=== PATIENT | male | born 1990 | race Caucasian/White ===

== ENCOUNTER 2021-01-07 09:01 | Emergency (ER) | payer OTHER ==
--- OUTSIDE RECORDS SUMMARY | 2021-01-07 09:04 | XMS REPORT | Continuity of Care Document ---
:1990 Author Organization [facility] t Address [address] [place] [address] [address] [place] [address] Care Team Providers Name Role Phone Lab, Fam Pob I Attending Clinician Unavailable Doctor Unassigned, Name Attending Clinician Unavailable Problems This patient has no known problems. Allergies, Adverse Reactions, Alerts This patient has no known allergies or adverse reactions. Medications This patient has no known medications. Procedures This patient has no known procedures. Encounters Start End Encounter Admission Attending Care Care Encounter Source Date/Time Date/Time Type Type Clinicians Facility Department ID 2020-12-25 2020-12-25 Laboratory Lab, [facility] [id number] 18:40:50 19:00:50 Only Fam Pob I Health [id number] [place] [id number] Professio [phone] nal [address] 2020-12-25 2020-12-25 Orders Doctor ILDA [id number] 00:00:00 00:00:00 Only Unassigned, OZZY [id number] [place] [facility] [id number] Results This patient has no known results.
[2021-01-07 09:41] LABS: Absolute Lymphocytes (CBC) 1.3 K/uL (0.7-4.9); Basophils % 0.6 % (0-1.3); Hematocrit 43.5 % (39.6-49.0); Lymphocytes % 13.7 % (15.3-44.8); MPV 7.8 fL (7.6-11.3); RBC Red Blood Cell Count 5.16 M/uL (4.33-5.43)
[2021-01-07 09:51] LABS: Protime INR 1.01
[2021-01-07] MEDS ORDERED: LORazepam 2 MG/ML VIAL ONE (09:56)
[2021-01-07 10:09] LABS: ALT/SGPT 42 U/L (12-78); AST/SGOT 11 U/L (15-37); Albumin 4.8 g/dL (3.4-5.0); Alkaline Phosphatase 81 U/L (45-117); BUN Blood Urea Nitrogen 15 mg/dL (7-18); Bicarbonate 23 mmol/L (21-32); Bilirubin Direct 0.2 mg/dL (0-0.2); Bilirubin Total 1.1 mg/dL (0.2-1.0); Glucose Level 114 mg/dL (74-106); Magnesium 2.3 mg/dL (1.8-2.4); NT PRO-BNP 26 pg/mL (<125); Potassium 3.5 mmol/L (3.5-5.1); Protein, Total 8.3 g/dL (6.4-8.2); Sodium Level 140 mmol/L (136-145); Troponin (Emerg Dept Use Only) < 0.02 ng/mL (0.0-0.045)
--- NOTE | 2021-01-07 10:15 | ER ---
Nurse's Notes [facility] Name: Kevin Laughlin Age: 30 yrs Sex: Male : 1990 Arrival Date: 01/07/2021 Time: 09:05 Bed DIS3 Private MD: Diagnosis: Anxiety disorder, unspecified Presentation: 01/07 09:15 Chief complaint: Patient states: "I started these meds last night (Sertraline \\T\\ ss Gabapentin), but I was also diagnosed with COVID on the . I woke up in the middle of the night sweaty, nauseated and in a panic.". Coronavirus screen: Client presents with at least one sign or symptom that may indicate coronavirus-19. Ebola Screen: Patient denies exposure to infectious person. Patient denies travel to an Ebola-affected area in the 21 days before illness onset. Initial Sepsis Screen: Does the patient meet any 2 criteria? No. Patient's initial sepsis screen is negative. Does the patient have a suspected source of infection? No. Patient's initial sepsis screen is negative. Risk Assessment: Do you want to hurt yourself or someone else? Patient reports no desire to harm self or others. Onset of symptoms was January 06, 2021. 09:15 Method Of Arrival: Ambulatory ss 09:15 Acuity: JON 3 ss Historical: - Allergies: 09:18 No Known Allergies; ss - PMHx: 09:18 Anxiety; ss - PSHx: 09:18 None; ss - Immunization history:: Client reports having NOT received the Covid vaccine. - Social history:: Smoking status: Patient reports the use of cigarette tobacco products, denies chronic smoking, but will smoke occasionally. Screenin:20 Abuse screen: Denies threats or abuse. Denies injuries from another. Nutritional ss screening: No deficits noted. Tuberculosis screening: Never had TB. Fall Risk None identified. Assessment: 09:20 General: Behavior is anxious, Denies fever, feeling ill, fatigue, chills. Neuro: Level ss of Consciousness is awake, alert, obeys commands, Oriented to person, place, time, situation, Gait is steady, Speech is normal, Facial symmetry appears normal, Pupils are PERRLA, Denies numbness headache. Cardiovascular: Rhythm is regular. Respiratory: Airway is patent Respiratory effort is even, unlabored, Respiratory pattern is regular, symmetrical, Breath sounds are clear bilaterally. GI: No signs and/or symptoms were reported involving the gastrointestinal system. Patient currently denies abdominal pain, diarrhea, nausea, vomiting. EENT: Oral mucosa is moist. Derm: Skin is intact, is healthy with good turgor, Skin is dry, Skin is pink, warm \\T\\ dry. normal. Vital Signs: 09:15 Pulse 74; Resp 16; Pulse Ox 100% on R/A; Weight 86.18 kg; Height 5 ft. 7 in. (170.18 ss cm); 09:18 BP 140 / 99; Temp 98.1(TE); ss 09:15 Body Mass Index 29.76 (86.18 kg, 170.18 cm) ss ED Course: 09:05 Patient arrived in ED. mr 09:16 Iram Hahn FNP-C is PHCP. kb 09:16 Boby Lawson MD is Attending Physician. kb 09:17 Triage completed. ss 09:18 Arm band placed on right wrist. ss 09:20 Patient has correct armband on for positive identification. Bed in low position. Call ss light in reach. 09:24 Keyla Dozier, TAMARA is Primary Nurse. ss 09:34 Inserted saline lock: 20 gauge in right antecubital area, using aseptic technique. mt Blood collected. 09:48 XRAY Chest (1 view) In Process Unspecified. EDMS 10:23 No provider procedures requiring assistance completed. IV discontinued, intact, ss bleeding controlled, No redness/swelling at site. Pressure dressing applied. Administered Medications: 09:41 Drug: Ativan (LORazepam) 0.5 mg Route: IVP; Site: right antecubital; iw 10:24 Follow up: Response: No adverse reaction; Anxiety decreased ss Outcome: 10:15 Discharge ordered by . kb 10:23 Discharged to home ambulatory. ss 10:23 Condition: good 10:23 Discharge instructions given to patient, Instructed on discharge instructions, follow up and referral plans. Demonstrated understanding of instructions, follow-up care. 10:24 Patient left the ED. ss Signatures: Dispatcher [employer] EDMS Iram Hahn FNP-C FNP-Caitlin VazquezaAniya Ruth Diez RN RN Keyla Dozier RN RN Vicki Abreu mt
--- NOTE | 2021-01-07 10:15 | EDPHYS ---
Physician Documentation [facility] Name: Kevin Laughlin Age: 30 yrs Sex: Male : 1990 Arrival Date: 01/07/2021 Time: 09:05 Bed DIS3 Private MD: ED Physician Boby Lawson HPI: 01/07 09:34 This 30 yrs old Male presents to ER via Ambulatory with complaints of kb Shortness Of Breath, Anxiety, Nausea/Vomiting. 09:33 The patient has not experienced similar symptoms in the past. The patient has not kb recently seen a physician. Patient states he started gabapentin and sertraline last night. States he had a little dizziness prior to going to sleep last night. Woke up this morning with severe anxiety. Reports he has had chest pains for weeks as well. Was seen in the office at the beginning of the month for these pains negative work-up per patient. [facility].. 09:34 The patient presents to the emergency department with anxiety, new medication. Onset: kb The symptoms/episode began/occurred this morning. Past psychiatric history: Prior diagnosis: anxiety. Associated signs and symptoms: Pertinent positives; anxiety, chest pain, nausea, vomiting. Severity of symptoms: At their worst the symptoms were moderate in the emergency department the symptoms have improved mildly. Historical: - Allergies: 09:18 No Known Allergies; ss - PMHx: 09:18 Anxiety; ss - PSHx: 09:18 None; ss - Immunization history:: Client reports having NOT received the Covid vaccine. - Social history:: Smoking status: Patient reports the use of cigarette tobacco products, denies chronic smoking, but will smoke occasionally. ROS: 09:35 Constitutional: Negative for fever, chills, and weight loss. kb 09:35 Cardiovascular: Positive for chest pain. 09:35 Abdomen/GI: Positive for nausea and vomiting. 09:35 Psych: Positive for anxiety. 09:35 All other systems are negative. Exam: 09:35 Constitutional: This is a well developed, well nourished patient who is awake, alert, kb and in no acute distress. Head/Face: Normocephalic, atraumatic. ENT: Moist Mucous membranes Cardiovascular: Regular rate and rhythm with a normal S1 and S2. No gallops, murmurs, or rubs. No pulse deficits. Respiratory: Respirations even and unlabored. No increased work of breathing, no retractions or nasal flaring. Skin: Warm, dry with normal turgor. Normal color. MS/ Extremity: Pulses equal, no cyanosis. Neurovascular intact. Full, normal range of motion. Neuro: Awake and alert, GCS 15, oriented to person, place, time, and situation. Moves all extremities. Normal gait. Psych: Awake, alert, with orientation to person, place and time. Behavior, mood, and affect are within normal limits. 09:35 ECG was reviewed by the Attending Physician. Vital Signs: 09:15 Pulse 74; Resp 16; Pulse Ox 100% on R/A; Weight 86.18 kg; Height 5 ft. 7 in. (170.18 ss cm); 09:18 BP 140 / 99; Temp 98.1(TE); ss 09:15 Body Mass Index 29.76 (86.18 kg, 170.18 cm) ss MDM: 09:16 Patient medically screened. kb 09:35 Data reviewed: vital signs, nurses notes. Data interpreted: Pulse oximetry: on room air kb is 100 %. Interpretation: normal. 10:15 Counseling: I had a detailed discussion with the patient and/or guardian regarding: the kb historical points, exam findings, and any diagnostic results supporting the discharge/admit diagnosis, lab results, radiology results, the need for outpatient follow up, a family practitioner, to return to the emergency department if symptoms worsen or persist or if there are any questions or concerns that arise at home. Response to treatment: the patient's symptoms have markedly improved after treatment. 01/07 09:21 Order name: Basic Metabolic Panel; Complete Time: 10:10 kb 01/07 09:21 Order name: CBC with Diff; Complete Time: 09:45 kb 01/07 09:21 Order name: LFT's; Complete Time: 10:10 kb 01/07 09:21 Order name: Magnesium; Complete Time: 10:10 kb 01/07 09:21 Order name: NT PRO-BNP; Complete Time: 10:10 kb 01/07 09:21 Order name: PT-INR; Complete Time: 10:01 kb 01/07 09:19 Order name: EKG; Complete Time: 09:20 ss 01/07 09:19 Order name: EKG - Nurse/Tech; Complete Time: 09:19 ss 01/07 09:21 Order name: Troponin (emerg Dept Use Only); Complete Time: 10:10 kb 01/07 09:21 Order name: XRAY Chest (1 view); Complete Time: 11:05 kb 01/07 09:21 Order name: Cardiac monitoring; Complete Time: 10:17 kb 01/07 09:21 Order name: IV Saline Lock; Complete Time: :34 kb 01/07 09:21 Order name: Labs collected and sent; Complete Time: :34 kb 01/07 09:21 Order name: O2 Per Protocol; Complete Time: :34 kb 01/07 09:21 Order name: O2 Sat Monitoring; Complete Time: :34 kb EC:35 Rate is 94 beats/min. Rhythm is regular. QRS [place] is Normal. VT interval is normal at kb 136 msec. QRS interval is normal at 90 msec. QT interval is normal at 334 msec. Administered Medications: 09:41 Drug: Ativan (LORazepam) 0.5 mg Route: IVP; Site: right antecubital; iw 10:24 Follow up: Response: No adverse reaction; Anxiety decreased ss Disposition: 10:36 Co-signature as Attending Physician, Boby Lawson MD I agree with the assessment and rn plan of care. Attestation: The patient's history, exam findings, diagnostics, and a summary of any interventions or procedures was reviewed in detail with Iram DODD. Disposition Summary: 01/07/21 10:15 Discharge Ordered Location: Home kb Condition: Stable kb Diagnosis - Anxiety disorder, unspecified kb Followup: kb - With: Emergency Department - When: As needed - Reason: Worsening of condition Followup: kb - With: Private Physician - When: 2 - 3 days - Reason: Recheck today's complaints, Continuance of care, Re-evaluation by your physician Discharge Instructions: - Discharge Summary Sheet kb - Panic Attack, [id number] kb Forms: - Medication Reconciliation Form kb - Thank You Letter kb - Antibiotic Education kb - Prescription Opioid Use kb Signatures: Dispatcher [employer] EDIram Maxwell FNP-C FNP-Ruth Armando RN RN iw Nieto, Roman, MD MD rn Smirch, Shelby, RN RN ss
--- NOTE | 2021-01-07 10:24 | RAD REPORT ---
EXAM DESCRIPTION: [place] Single View01/07/2021 9:49 am CLINICAL HISTORY: Chest pain COMPARISON: none FINDINGS: The lungs appear clear of acute infiltrate. The heart is normal size IMPRESSION: No acute abnormalities displayed
[2021-01-07 10:32] VITALS: O2SAT 100
[2021-01-07 10:33] VITALS: BP 140/99; TEMP 98.1
--- NOTE | 2021-01-08 15:41 | EKG ---
Test Date: 2021-01-07 Test Time: 09:22:46 Mcat Tutor: HILDA MEASUREMENT RESULTS: Intervals: Rate: 94 AL: 136 QRSD: 90 QT: 334 QTc: 417 [place]: P: 50 AL: 136 QRS: 42 T: 45 INTERPRETIVE STATEMENTS: Normal sinus rhythm Normal ECG No previous ECG available for comparison Electronically Signed On 01-08-21 15:37:20 CDT by Wilfrido Clarke
--- NOTE | 2021-01-08 15:41 | EKG ---
Test Date: 2021-01-07 Test Time: 09:46:54 Applications System Analyst: DEVYN MEASUREMENT RESULTS: Intervals: Rate: 75 OR: 138 QRSD: 82 QT: 348 QTc: 388 [place]: P: 39 OR: 138 QRS: 46 T: 57 INTERPRETIVE STATEMENTS: Normal sinus rhythm with sinus arrhythmia Normal ECG Compared to ECG 01/07/2021 09:22:46 No significant changes Electronically Signed On 01-08-21 15:37:19 CDT by Wilfrido Clarke
== END 2021-01-07 10:24 | disposition home or self-care (01) ==
LOC: ER 09:01
DX: F41.9 Anxiety disorder, unspecified (principal); F17.210 Nicotine dependence, cigarettes, uncomplicated
CPT/HCPCS: 36415; 71045; 80048; 80076; 83735; 83880; 84484; 85025; 85610; 93005; 96374; 99284

== ENCOUNTER 2021-01-09 20:09 | Emergency (ER) | payer OTHER ==
--- OUTSIDE RECORDS SUMMARY | 2021-01-09 20:10 | XMS REPORT | Continuity of Care Document ---
:1990 Author Organization [facility] t Address [address] [place] [address] Care Team Providers Name Role Phone Lab, [...] Facility Department ID 2020-12-25 2020-12-25 Laboratory Lab, [facility] [id number] 18:40:50 19:00:50 Only Fam Pob I Health [id number] [place] [id number] Professio [phone] nal [address] 2020-12-25 2020-12-25 Orders Doctor ILDA [id number] 00:00:00 00:00:00 Only Unassigned, OZZY [id number] [place] [facility] [phone] [id number] Results This patient has no known results.
[2021-01-09 22:41] LABS: Basophils % 0.9 % (0-1.3); Hematocrit 40.2 % (39.6-49.0); MPV 8.2 fL (7.6-11.3); RBC Red Blood Cell Count 4.71 M/uL (4.33-5.43)
[2021-01-09 22:44] LABS: Protime INR 0.99
[2021-01-09 23:06] LABS: ALT/SGPT 32 U/L (12-78); AST/SGOT 11 U/L (15-37); Albumin 4.5 g/dL (3.4-5.0); Alkaline Phosphatase 72 U/L (45-117); BUN Blood Urea Nitrogen 11 mg/dL (7-18); Bicarbonate 24 mmol/L (21-32); Bilirubin Direct 0.2 mg/dL (0-0.2); Bilirubin Total 0.9 mg/dL (0.2-1.0); Glucose Level 88 mg/dL (74-106); Magnesium 2.2 mg/dL (1.8-2.4); NT PRO-BNP 59 pg/mL (<125); Potassium 3.6 mmol/L (3.5-5.1); Protein, Total 7.8 g/dL (6.4-8.2); Sodium Level 138 mmol/L (136-145); Troponin (Emerg Dept Use Only) < 0.02 ng/mL (0.0-0.045)
[2021-01-09] MEDS ORDERED: LORazepam 2 MG/ML VIAL ONE (23:32)
[2021-01-09 23:47] LABS: Barbiturates NEGATIVE (NEGATIVE); Benzodiazepines NEGATIVE (NEGATIVE); Cocaine NEGATIVE (NEGATIVE); METHAMPHETAM NEGATIVE (NEGATIVE); Methadone NEGATIVE (NEGATIVE); Opiates NEGATIVE (NEGATIVE); Phencyclidine NEGATIVE (NEGATIVE); THC Cannibis POSITIVE (NEGATIVE)
--- NOTE | 2021-01-10 00:51 | EDPHYS ---
Physician Documentation [facility] Name: Kevin Laughlin Age: 30 yrs Sex: Male : 1990 Arrival Date: 01/09/2021 Time: 20:10 Bed 24 Private MD: Pola Moran T ED Physician Boby Lawson HPI: 01/09 22:30 This 30 yrs old Male presents to ER via Ambulatory with complaints of cp Anxiety, Chest Pain, Breathing Difficulty. 22:30 The patient presents to the emergency department with anxiety, over unknown cp circumstances. 22:30 Onset: The symptoms/episode began/occurred 2 hour(s) ago. cp 22:30 Past psychiatric history: Prior diagnosis: depression, anxiety, Psychiatric medications cp include: Zoloft, gabapentin. Associated signs and symptoms: Pertinent positives; chest pain, shortness of breath, Pertinent negatives: fever, hallucinations, homicidal ideation, paranoia, substance abuse, suicide ideation, vomiting. Severity of symptoms: in the emergency department the symptoms are unchanged despite home interventions. 22:30 Patient reports use of marijuana and past history of cocaine use. Reports anxiety cp started 2 hours ago. No obvious cause. Historical: - Allergies: 21:56 No Known Allergies; em - PMHx: 21:56 Anxiety; em - PSHx: 21:56 None; em - Immunization history:: Client reports having NOT received the Covid vaccine. - Social history:: Smoking status: Patient denies any tobacco usage or history of. - Family history:: not pertinent. - Code Status:: Full code. ROS: 22:35 Psych: Positive for anxiety, depression, Negative for auditory hallucinations, visual cp hallucinations, homicidal ideation, suicide gesture, suicidal ideation. 22:35 Cardiovascular: Positive for chest pain. cp 22:35 Respiratory: Positive for shortness of breath, Negative for cough, wheezing. 22:35 Eyes: Negative for injury, pain, redness, and discharge. cp 22:35 Constitutional: Negative for body aches, chills, fever, poor PO intake. 22:35 ENT: Negative for ear pain, sore throat, difficulty swallowing, difficulty handling secretions. 22:35 Abdomen/GI: Positive for nausea, Negative for abdominal pain, vomiting, diarrhea, constipation. 22:35 Neuro: Negative for altered mental status, headache, weakness. cp 22:35 All other systems are negative. cp Exam: 22:40 Constitutional: The patient appears in no acute distress, alert, awake, cp non-diaphoretic, non-toxic, well developed, well nourished, anxious. 22:40 Head/Face: Normocephalic, atraumatic. cp 22:40 Eyes: Periorbital structures: appear normal, Pupils: equal, round, and reactive to light and accomodation, Extraocular movements: intact throughout, Conjunctiva: normal, no exudate, no injection, Sclera: no appreciated abnormality, Lids and lashes: appear normal, bilaterally. 22:40 ENT: External ear(s): are unremarkable, Nose: is normal, Mouth: Lips: moist, Oral mucosa: moist, Posterior pharynx: Airway: no evidence of obstruction, patent. 22:40 Neck: ROM/movement: is normal, is supple, without pain, no range of motions limitations. 22:40 Chest/axilla: Inspection: normal, Palpation: is normal, no crepitus, no tenderness. 22:40 Cardiovascular: Rate: normal, Rhythm: regular, Heart sounds: murmur, not appreciated. 22:40 Respiratory: the patient does not display signs of respiratory distress, Respirations: normal, no use of accessory muscles, no retractions, labored breathing, is not present, Breath sounds: are clear throughout, no decreased breath sounds, no stridor, no wheezing. 22:40 Abdomen/GI: Inspection: abdomen appears normal, Palpation: abdomen is soft and non-tender, in all quadrants. 22:40 Neuro: Orientation: to person, place \T\ time. Mentation: is normal, Motor: moves all fours, strength is normal. 22:40 Psych: Behavior/mood is cooperative, anxious, Affect is calm, Patient has no thoughts/intents to harm self or others. Judgement / Insight is normal. Delusions/hallucinations are not present. 22:45 ECG was reviewed by the Attending Physician. cp Vital Signs: 21:54 BP 146 / 99; Pulse 65; Resp 20; Temp 98.7; Pulse Ox 100% on R/A; Weight 86.18 kg; em Height 5 ft. 9 in. (175.26 cm); 23:00 BP 130 / 82; Pulse 98; Resp 20; Temp 98.6; Pulse Ox 100% ; Pain 3/10; mg4 01/10 00:17 BP 117 / 91; Pulse 58; Resp 18; Temp 97.5; Pulse Ox 98% on R/A; Pain 0/10; wg 00:30 BP 117 / 91; Pulse 54; Resp 20; Pulse Ox 100% ; Pain 0/10; mg4 01:36 BP 118 / 64; Pulse 80; Resp 18; Temp 97.5; Pulse Ox 100% on R/A; Pain 0/10; wg 01/09 21:54 Body Mass Index 28.06 (86.18 kg, 175.26 cm) em Shannon Coma Score: 01/09 22:30 Eye Response: spontaneous(4). Verbal Response: oriented(5). Motor Response: obeys wg commands(6). Total: 15. MDM: 22:01 Patient medically screened. cp 01/10 00:50 Data reviewed: vital signs, nurses notes, lab test result(s), EKG, and as a result, I cp will discharge patient. 00:50 Differential diagnosis: drug withdrawal. acute psychotic break, depression, psychosis cp secondary to non-compliance. Test interpretation: by ED physician or midlevel provider: ECG. Counseling: I had a detailed discussion with the patient and/or guardian regarding: the historical points, exam findings, and any diagnostic results supporting the discharge/admit diagnosis, lab results, the need for outpatient follow up, for definitive care, a family practitioner, a psychiatrist, to return to the emergency department if symptoms worsen or persist or if there are any questions or concerns that arise at home. Response to treatment: the patient's symptoms have markedly improved after treatment, and as a result, I will discharge patient. 01/09 22:01 Order name: Basic Metabolic Panel; Complete Time: 00:40 cp 01/09 22:01 Order name: CBC with Diff; Complete Time: 00:40 cp 01/09 22:01 Order name: LFT's; Complete Time: 00:40 cp 01/10 00:40 Interpretation: Normal except: AST 11. cp 01/09 22: Order name: Magnesium; Complete Time: 00:40 cp 01/09 22:01 Order name: NT PRO-BNP; Complete Time: 00:40 cp 01/09 22: Order name: PT-INR; Complete Time: 00:40 cp 01/09 22:01 Order name: Troponin (emerg Dept Use Only); Complete Time: 00:40 cp 01/09 22:01 Order name: XRAY Chest (1 view) cp 01/09 22: Order name: EKG; Complete Time: 22:02 cp 01/09 22: Order name: Cardiac monitoring; Complete Time: 22:11 cp 01/09 22: Order name: EKG - Nurse/Tech; Complete Time: 22:11 cp 01/09 22: Order name: IV Saline Lock; Complete Time: 22:31 cp 01/09 22: Order name: UDS; Complete Time: 00:40 cp 01/10 00:41 Interpretation: Normal except: THC POSITIVE. cp 01/09 22: Order name: Labs collected and sent; Complete Time: 22:31 cp 01/09 22: Order name: O2 Per Protocol; Complete Time: 22:31 cp 01/09 22: Order name: O2 Sat Monitoring; Complete Time: :31 cp EC/26 22:45 Rate is 61 beats/min. Rhythm is regular. [place] interval is normal. QRS interval is cp prolonged at 104 msec. QT interval is normal. Interpreted by me. Reviewed by me. Administered Medications: 23:12 Drug: Ativan (LORazepam) 0.5 mg Route: IVP; Site: left antecubital; 01/10 00:17 Follow up: BP 117 / 91; Pulse 58 bpm; Resp 18 bpm; Temp 97.5; Pulse Ox 98% RA; Pain wg 0/10 Adult; Response: No adverse reaction; Marked relief of symptoms; Pain is decreased Disposition: 03:22 Co-signature as Attending Physician, Boby Lawson MD I agree with the assessment and rn plan of care. Attestation: The patient's history, exam findings, diagnostics, and a summary of any interventions or procedures was reviewed in detail with Jude MAYER. Disposition Summary: 01/10/21 00:50 Discharge Ordered Location: Home cp Problem: an ongoing problem cp Symptoms: have improved cp Condition: Stable cp Diagnosis - Anxiety disorder, unspecified cp Followup: cp - With: Private Physician - When: 1 - 2 days - Reason: Recheck today's complaints Discharge Instructions: - Discharge Summary Sheet cp - Generalized Anxiety Disorder, Adult cp Forms: - Medication Reconciliation Form cp - Thank You Letter cp - Antibiotic Education cp - Prescription Opioid Use cp Signatures: Dispatcher [employer] Jerome Tucker, TAMARA RN Boby Cortez MD MD rn Page, Corey, PA PA cp Gamba, Williams wg
--- NOTE | 2021-01-10 00:51 | ER ---
Nurse's Notes [facility] Name: Kevin Laughlin Age: 30 yrs Sex: Male : 1990 Arrival Date: 01/09/2021 Time: 20:10 Bed 24 Private MD: Pola Moran T Diagnosis: Anxiety disorder, unspecified Presentation: 01/09 21:54 Chief complaint: Patient states: chest pain anxiety that started 2 hours ago, hx of em anxiety, reports nausea, was here on Wednesday for the same thing. Coronavirus screen: Client denies travel out of the [place] in the last 14 days. Ebola Screen: Patient negative for fever greater than or equal to 101.5 degrees Fahrenheit, and additional compatible Ebola Virus Disease symptoms Patient denies exposure to infectious person. Patient denies travel to an Ebola-affected area in the 21 days before illness onset. No symptoms or risks identified at this time. Initial Sepsis Screen: Does the patient meet any 2 criteria? No. Patient's initial sepsis screen is negative. Does the patient have a suspected source of infection? No. Patient's initial sepsis screen is negative. Risk Assessment: Do you want to hurt yourself or someone else? Patient reports no desire to harm self or others. Onset of symptoms was January 09, 2021. 21:54 Method Of Arrival: Ambulatory em 21:54 Acuity: JON 3 em Historical: - Allergies: 21:56 No Known Allergies; em - PMHx: 21:56 Anxiety; em - PSHx: 21:56 None; em - Immunization history:: Client reports having NOT received the Covid vaccine. - Social history:: Smoking status: Patient denies any tobacco usage or history of. - Family history:: not pertinent. - Code Status:: Full code. Screenin:32 Abuse screen: Denies threats or abuse. Denies injuries from another. Nutritional wg screening: No deficits noted. Tuberculosis screening: No symptoms or risk factors identified. Fall Risk None identified. Assessment: 22:30 Reassessment: No changes from previously documented assessment. Patient and/or family wg updated on plan of care and expected duration. Pain level reassessed. General: Appears in no apparent distress. Behavior is calm, cooperative, appropriate for age. Pain: Denies pain. Pain does not radiate. Neuro: No deficits noted. Respiratory: No deficits noted. GI: No deficits noted. : No deficits noted. EENT: No deficits noted. Derm: No deficits noted. Musculoskeletal: No deficits noted. 22:32 Pain: Complains of pain in chest Pain began 2 hours ago. Cardiovascular: Chest pain is wg described as Chest discomfort, describes as anxiety related. . Vital Signs: 21:54 BP 146 / 99; Pulse 65; Resp 20; Temp 98.7; Pulse Ox 100% on R/A; Weight 86.18 kg; em Height 5 ft. 9 in. (175.26 cm); 23:00 BP 130 / 82; Pulse 98; Resp 20; Temp 98.6; Pulse Ox 100% ; Pain 3/10; mg4 01/10 00:17 BP 117 / 91; Pulse 58; Resp 18; Temp 97.5; Pulse Ox 98% on R/A; Pain 0/10; wg 00:30 BP 117 / 91; Pulse 54; Resp 20; Pulse Ox 100% ; Pain 0/10; mg4 01:36 BP 118 / 64; Pulse 80; Resp 18; Temp 97.5; Pulse Ox 100% on R/A; Pain 0/10; wg 01/09 21:54 Body Mass Index 28.06 (86.18 kg, 175.26 cm) em Vitals: 01/09 22:30 Cardiac Rhythm Assessment Regular Sinus rhythm. Irving Coma Score: 22:30 Eye Response: spontaneous(4). Verbal Response: oriented(5). Motor Response: obeys wg commands(6). Total: 15. ED Course: 20:10 Patient arrived in ED. mr 20:10 Pola Moran MD is Private Physician. mr 21:56 Triage completed. em 21:56 Arm band placed on. em 22:00 Jude Dubose PA is PHCP. cp 22:00 Boby Lawson MD is Attending Physician. cp 22:16 Randolph Izquierdo is Primary Nurse. mg4 22:32 No apparent distress. wg 22:32 Patient has correct armband on for positive identification. monitoring tech on. Pulse wg ox on. NIBP on. 22:32 No provider procedures requiring assistance completed. Initial lab(s) drawn, by ED wg staff, sent to lab. Urine collected: EKG done, by ED staff. Inserted saline lock: 20 gauge in left antecubital area, using aseptic technique. Patient maintains SpO2 saturation greater than 95% on room air. 22:43 XRAY Chest (1 view) In Process Unspecified. EDMS 23:16 UDS Sent. wg 01/10 01:35 IV discontinued, intact, bleeding controlled, No redness/swelling at site. Pressure wg dressing applied. Administered Medications: 01/09 23:12 Drug: Ativan (LORazepam) 0.5 mg Route: IVP; Site: left antecubital; wg 01/10 00:17 Follow up: BP 117 / 91; Pulse 58 bpm; Resp 18 bpm; Temp 97.5; Pulse Ox 98% RA; Pain wg 0/10 Adult; Response: No adverse reaction; Marked relief of symptoms; Pain is decreased Outcome: 00:50 Discharge ordered by MD. christie 01:36 Patient left the ED. wg Signatures: Dispatcher [employer] EDAniya Ash Edgar, RN RN Jude Acosta PA PA cp Garcia, [place] 4 Rg Leo wg
[2021-01-10 01:49] VITALS: TEMP 97.5
[2021-01-10 01:50] VITALS: O2SAT 100
[2021-01-10 01:51] VITALS: BP 118/64
--- NOTE | 2021-01-10 07:10 | RAD REPORT ---
EXAM DESCRIPTION: RAD - Chest Single View - 01/09/2021 10:42 pm CLINICAL HISTORY: CHEST PAIN COMPARISON: Chest Single View dated 01/07/2021 FINDINGS: No evidence of edema or pneumonia. The heart size is within normal limits.No acute osseous abnormality. No significant pleural effusions or pneumothorax. IMPRESSION: No acute cardiopulmonary disease.
== END 2021-01-10 01:36 | disposition home or self-care (01) ==
LOC: ER 20:09
DX: F41.9 Anxiety disorder, unspecified (principal)
CPT/HCPCS: 36415; 71045; 80048; 80076; 80307; 83735; 83880; 84484; 85025; 85610; 93005; 96374; 99285

== ENCOUNTER 2023-12-30 00:19 | Emergency (ER) | payer SELFPAY ==
[2023-12-30] MEDS ORDERED: KETOROLAC 30 MG/ML INJ ONE (01:53)
--- NOTE | 2023-12-30 03:07 | ER ---
Nurse's Notes [facility] Name: Kevin Laughlin Age: 33 yrs Sex: Male : 1990 Arrival Date: 12/30/2023 Time: 00:19 Bed DX1 Private MD: Diagnosis: Contusion of left wrist Presentation: 12/29 00:30 Chief complaint: Patient states: Hit a light switch with left hand. vc1 00:30 Coronavirus screen: Client denies travel out of the [place] in the last 14 days. At this vc1 time, the client does not indicate any symptoms associated with coronavirus-19. Ebola Screen: Patient negative for fever greater than or equal to 101.5 degrees Fahrenheit, and additional compatible Ebola Virus Disease symptoms Patient denies exposure to infectious person. Patient denies travel to an Ebola-affected area in the 21 days before illness onset. No symptoms or risks identified at this time. Initial Sepsis Screen: Does the patient meet any 2 criteria? No. Patient's initial sepsis screen is negative. Does the patient have a suspected source of infection? No. Patient's initial sepsis screen is negative. Risk Assessment: Do you want to hurt yourself or someone else? Patient reports no desire to harm self or others. Onset of symptoms is unknown. 00:30 Method Of Arrival: Ambulatory vc1 00:30 Acuity: JON 4 vc1 Historical: - Allergies: 01:48 Aspirin; vc1 - Home Meds: 01:48 None [Active]; vc1 - PMHx: 01:48 Anxiety; vc1 - PSHx: 01:48 None; vc1 - Immunization history:: Adult Immunizations up to date. - Infectious Disease History:: Denies. - Social history:: Smoking status: unknown. Screenin:17 [facility] ED Fall Risk Assessment (Adult) History of falling in the last 3 months, vc1 including since admission No falls in past 3 months (0 pts) Confusion or Disorientation No (0 pts) Intoxicated or Sedated No (0 pts) Impaired Gait No (0 pts) Mobility Assist Device Used No (0 pt) Altered Elimination No (0 pt) Score/Fall Risk Level 0 - 2 = Low Risk Oriented to surroundings, Maintained a safe environment, Educated pt \T\ family on fall prevention, incl call for assistance when getting out of bed. Abuse screen: Denies threats or abuse. Nutritional screening: No deficits noted. Tuberculosis screening: No symptoms or risk factors identified. Assessment: 01:00 General: Appears in no apparent distress. comfortable, slender, well groomed, well vc1 developed, Behavior is calm, cooperative, appropriate for age. Pain: Complains of pain in left wrist Pain does not radiate. Pain currently is 8 out of 10 on a pain scale. Neuro: Level of Consciousness is awake, alert, obeys commands, Oriented to person, place, time, situation, Appropriate for age. Cardiovascular: No deficits noted. Respiratory: Airway is patent Respiratory effort is even, unlabored, Respiratory pattern is regular, symmetrical, Breath sounds are clear bilaterally. GI: No deficits noted. No signs and/or symptoms were reported involving the gastrointestinal system. : No deficits noted. No signs and/or symptoms were reported regarding the genitourinary system. EENT: No deficits noted. No signs and/or symptoms were reported regarding the EENT system. Derm: Skin is intact, is healthy with good turgor, Skin is dry, Skin is normal, Skin temperature is warm. Musculoskeletal: Reports pain in left wrist. 03:20 Reassessment: Patient appears in no apparent distress at this time. Patient and/or vc1 family updated on plan of care and expected duration. Pain level reassessed. Patient is alert, oriented x 3, equal unlabored respirations, skin warm/dry/pink. Patient states feeling better. Patient states symptoms have improved. Vital Signs: 01:18 BP 133 / 96; Pulse 105; Resp 18; Temp 98.6; Pulse Ox 96% on R/A; Weight 90.72 kg; rv1 Height 5 ft. 7 in. ; Pain 8/10; 03:20 BP 128 / 88; Pulse 102; Resp 17; Pulse Ox 96% ; vc1 01:18 Body Mass Index 31.32 (90.72 kg, 170.18 cm) rv1 01:18 Pain Scale: Adult rv1 ED Course: 00:22 Patient arrived in ED. jj6 00:28 Iram Hahn FNP-C [facility]. kb 00:28 Kirk Fuentes MD is Attending Physician. kb 01:19 Radiology exam delayed due to pt not in the lobby. rs4 01:34 Wrist Left (3 View) XRAY In Process Unspecified. EDMS 01:48 Triage completed. vc1 03:17 Arm band placed on right wrist. vc1 03:17 No provider procedures requiring assistance completed. Patient did not have IV access vc1 during this emergency room visit. 03:18 Patient has correct armband on for positive identification. seen in diagnostic chair. vc1 Provided Education on: pain control, splint care. Administered Medications: 01:58 Drug: Ketorolac IM 30 mg IM once Route: IM; Site: right deltoid; vc1 03:13 Follow up: Response: No adverse reaction; Marked relief of symptoms vc1 Medication: 03:18 VIS not applicable for this client. vc1 Outcome: 03:07 Discharge ordered by . sachin 03:18 Discharged to home ambulatory, vc1 03:18 Condition: good 03:18 Discharge instructions given to patient, Instructed on discharge instructions, follow up and referral plans. medication usage, Demonstrated understanding of instructions, follow-up care, medications, Prescriptions given X 1, 03:20 Patient left the ED. vc1 Signatures: Dispatcher [employer] EDMS Iram Hahn, RECORD TESTER-C RECORD TESTER-CkClaudia Mckee jj6 Sasha Story RN RN vc1 Birgit Caruso4 Marissa Ojeda rv1 Kirk Fuentes MD MD sp4
--- NOTE | 2023-12-30 03:07 | EDPHYS ---
Physician Documentation [facility] Name: Kevin Laughlin Age: 33 yrs Sex: Male : 1990 Arrival Date: 12/30/2023 Time: 00:19 Bed DX1 Private MD: ED Physician Kirk Fuentes HPI: 12/29 00:31 This 33 yrs old Male presents to ER via Unassigned with complaints of Hand Injury. kb 00:31 Pt is a 33 year old male who presents for left wrist pain that started today. States he kb hit his wrist 4 days ago, but it hasn't been hurting until he popped his wrist today. States bruising has gotten worse since then as well. Denies numbness/tingling. . Historical: - Allergies: 01:48 Aspirin; vc1 - Home Meds: 01:48 None [Active]; vc1 - PMHx: 01:48 Anxiety; vc1 - PSHx: 01:48 None; vc1 - Immunization history:: Adult Immunizations up to date. - Infectious Disease History:: Denies. - Social history:: Smoking status: unknown. ROS: 00:30 Constitutional: As per HPI kb Exam: 00:32 Constitutional: This is a well developed, well nourished patient who is awake, alert, kb and in no acute distress. Head/Face: Normocephalic, atraumatic. ENT: Moist Mucous membranes Cardiovascular: Regular rate Respiratory: Respirations even and unlabored. No increased work of breathing. Talking in full sentences Skin: Warm, dry with normal turgor. Normal color. Neuro: Awake and alert, GCS 15, oriented to person, place, time, and situation. Moves all extremities. Normal gait. 00:32 Musculoskeletal/extremity: Extremities: grossly normal except: noted in the left wrist: decreased ROM, ecchymosis, pain, tenderness, ROM: limited active range of motion due to pain, Circulation is intact in all extremities. Sensation intact. Vital Signs: 01:18 BP 133 / 96; Pulse 105; Resp 18; Temp 98.6; Pulse Ox 96% on R/A; Weight 90.72 kg; rv1 Height 5 ft. 7 in. ; Pain 8/10; 03:20 BP 128 / 88; Pulse 102; Resp 17; Pulse Ox 96% ; vc1 01:18 Body Mass Index 31.32 (90.72 kg, 170.18 cm) rv1 01:18 Pain Scale: Adult rv1 MDM: 00:28 Patient medically screened. kb 00:33 Differential diagnosis: contusion, fracture. Data reviewed: vital signs, nurses notes. kb 00:53 Transition of care: After a detail discussion of the patient's case, care is kb transferred to Kirk Fuentes MD. 03:03 ED course: CLINICAL HISTORY: Pain. COMPARISON: None. TECHNIQUE: XR WRIST 3 OR MORE sp4 VIEWS LEFT 12/30/2023 12:32 AM CDT FINDINGS: There is no fracture. Joint spaces are preserved. Soft tissues are unremarkable. IMPRESSION: No acute osseous findings. . 12/29 00:32 Order name: Wrist Left (3 View) XRAY kb 12/29 03:08 Order name: Wrist Splint: Velcro splint applied by MD ; Complete Time: 03:13 sp4 Administered Medications: 01:58 Drug: Ketorolac IM 30 mg IM once Route: IM; Site: right deltoid; vc1 03:13 Follow up: Response: No adverse reaction; Marked relief of symptoms vc1 Disposition: 03:06 Co-signature as Attending Physician, Kirk Fuentes MD I agree with the assessment sp4 and plan of care. I reviewed the patient's care provided by Advanced Practice Provider \T\ agree w/ the diagnosis \T\ care plan. I personally saw the pt \T\ performed a substantive portion of the visit, incldng all aspects of the (History/Exam/Medical Decision Making). Disposition Summary: 12/30/23 03:07 Discharge Ordered Notes: Location: Home sp4 Problem: new sp4 Symptoms: have improved sp4 Condition: Stable sp4 Diagnosis - Contusion of left wrist sp4 Followup: sp4 - With: Private Physician - When: As needed - Reason: Recheck today's complaints Discharge Instructions: - Discharge Summary Sheet sp4 - Wrist Pain, Adult, [id number] sp4 Forms: - Patient Portal Instructions sp4 Prescriptions: - Ibuprofen 800 mg Oral Tablet - take 1 tablet ORAL route every 8 hours As needed take with food; 30 tablet; sp4 Refills: 0, Product Selection Permitted Signatures: Dispatcher [employer] EDIram Maxwell FNP-C FNP-CkSasha Sprague, RN RN vc1 Kirk Fuentes MD MD sp4
[2023-12-30 03:26] VITALS: TEMP 98.6; O2SAT 96
[2023-12-30 03:27] VITALS: BP 128/88
--- NOTE | 2023-12-30 14:28 | RAD REPORT ---
EXAM DESCRIPTION: RAD - Wrist Left 3 View - 12/30/2023 1:33 am CLINICAL HISTORY: Pain. COMPARISON: None. TECHNIQUE: XR WRIST 3 OR MORE VIEWS LEFT 12/30/2023 12:32 AM CDT FINDINGS: There is no fracture. Joint spaces are preserved. Soft tissues are unremarkable. IMPRESSION: No acute osseous findings. Electronically signed by: Lamonte Donovan MD 12/30/2023 02:36 AM CDT RP Due to temporary technical issues with the PACS/Fluency reporting system, reports are being signed by the in house radiologist without review as a courtesy to ensure prompt reporting. The interpreting r adiologist is fully responsible for the content of the report.
--- OUTSIDE RECORDS SUMMARY | 2023-12-31 09:16 | XMS REPORT | Continuity of Care Document ---
Author Name Unknown Address [address] [place] [address] [facility] Address [address] [place] [address] Care Team Providers Care Prawn Trawler Hand Name Role Phone Pcp, Patient Does Not Have A Primary Care Physic francie Doctor Unassigned, [place] Attending Clinician U navailable Lab, Adc Fam Pob I Attending Clinician Unavailab norah Cordova MD, Tina Attending Clinician TINA CORDOVA Attending Clinician Unavailable Payers Payer Name Policy Type Policy Number Effective Date Expirati on Date Source Allergies, Adverse Reactions, Alerts Allergy Name Allergy Type Status Severity Reaction(s) Onset Date Inactive Date Treating Clinician Comments Source NO KNOWN ALLERGIE S Drug Class Active [facility] Social History Social Habit Start Date Stop Date Quantity Comments Source Sexual orientation U [facility] Sex Assigned At 1990 00:00:00 1990 00:00:00 [facility] Smoking Status Start Date Stop Date Source Tobacco smoking consumption unknown [facility] Procedures Procedure Date / Time Performed Performing Clinicia n Source CONSENT/REFUSAL FOR DIAGNOSIS AND TREATMENT 2020-12-25 23:40:08 Doctor Unassigned, [place] [facility] ASSIGNMENT OF BENEFITS 2020-12-25 23:39:54 Docto r Unassigned, [place] [facility] Encounters Start Date/Time End Date/Time Encounter Type Admission Type Attending Clinicians Care Facility Care Department Encounter ID Source 2020-12-26 00:00:00 2020-12-26 00:00:00 Patient Secure Msg Doctor Unassigned, [place] [facility] 1.20.114 [id number] [facility] 2020-12-25 18:40:50 2020-12-25 19:00:50 Laboratory Only Lab, [facility] [address] [id number] [id number] 2020-12-25 18:40:50 2020-12-25 19:00:50 Laboratory Only Lab, [facility] Office [facility] [address] 1.114 [id number] [facility] 2020-12-25 18:40:00 2020-12-25 18:40:00 Outpatient R ART [facility] [id number] [facility] 2020-12-25 00:00:00 2020-12-25 00:00:00 Orders Only Doctor Unassigned, [place] [facility] 1.20.114 [id number] 2020-12-25 00:00:00 2020-12-25 00:00:00 Orders Only Doctor Unassigned, [place] [facility] 1.20.114 [id number] [facility]
== END 2023-12-30 03:20 | disposition home or self-care (01) ==
LOC: ER 00:19
DX: S60.212A Contusion of left wrist, initial encounter (principal); W22.8XXA Striking against or struck by other objects, initial encounter
CPT/HCPCS: 96372; 99284